=== PATIENT | male | born 1940 | race Caucasian/White ===

== ENCOUNTER 2023-01-03 16:23 | Emergency (ER) | payer MEDICARE, BC, SELFPAY ==
[2023-01-03 16:30] VITALS: BP 135/76; PULSE 83; RESP 20; TEMP 36.8; O2SAT 97
--- NOTE | 2023-01-03 16:56 | ED_ITS ---
HPI - General Adult General Time Seen by Provider: 17:51 Date Seen: 01/03/23 Chief complaint: Altered Mental Status Stated complaint: Disoriented, sleep issues, cognitive issues Time Seen by Provider: 01/03/23 16:55 Source: patient, RN notes reviewed and other (Girlfriend is present) Mode of arrival: ambulatory Limitations: no limitations History of Present Illness HPI narrative: This 82-year-old gentleman is coming in accompanied by his significant other with multitude of symptoms. They relate a history where about 3 weeks ago he just awoke around 1 in the night and could not get back to sleep. He has been having insomnia since then. Over months his balance is probably been worse but has gotten worse more so than starting Zoloft 6 days ago. 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 His sleep has not changed on the Zoloft, still not sleeping. When he wakes up at night he is confused. His girlfriend describes such things as he will ask her what he supposed to do next, does not understand what is going to happen with the numbers on the clock. She will tell him things like you should go back to bed in he will ask her how he does that. She states that somnolence like he does not know how to even get into bed or put the covers on over what supposed to come next. The 1st night he woke in the middle the night he was not sure how to put the dog outside or do anything. He really just could not figure things out and still can not in the middle the night. During the day he seems fine but still will have difficulty in can not nap. He denies any hallucinations at any time. He does not drink any alcohol there has been no trauma. Maybe sleeping a couple hours at night. Heel walk about 20 minutes a day and that is about his limit. About 10 years ago he had a heart attack and looks as if he had a thrombectomy and drug-eluting stent to RCA and drug-eluting stent to OM1. He thinks he maybe had a nuclear stress test a couple years ago, they are not sure if he had on last year. She admits she is concerned with the sweating the exercise intolerance that he might be having cardiac symptoms. He states he is having no pain now. Back in 2012 he did have some stomach discomfort with symptoms. Since starting the Zoloft he has noted some nausea, no vomiting he has had some looser type stools. He did get started on vitamin-D recently for vitamin-D deficiency. They have a prescription to start mirtazapine 7.5 mg tomorrow and were told to stop the Zoloft. He has not seen Neurology, has not had any neuro imaging. With his gait, he notes it is worse when he 1st gets up and then when he stops, that is when he feels most unsteady. Related Data Allergies Allergy/AdvReac Type Severity Reaction Status Date / Time Penicillins Allergy Mild Verified 01/03/23 16:33 Review of Systems Status of ROS: Reports: 6 or more systems reviewed and unremarkable except as noted in History and below PFSH [facility] Social History Smoking Status: Never smoker Do you use any of these nicotine containing products: None Second hand tobacco smoke exposure: No How often do you have a drink containing alcohol: never AUDIT-C Alcohol total score: 0 Non-prescribed substance use: denies use Exam Const: Vital Signs, click to edit/add: Vital Signs - 24 hr 01/03/23 16:30 Temperature 98.2 F Pulse Rate [Right Pulse Oximeter] 83 Respiratory Rate 20 Blood Pressure [Ri ght Upper Arm] 135/76 Pulse Oximetry 97 Oxygen Delivery Me thod Room Air Documenting provider has reviewed patient's vital signs: yes Common normals: no apparent distress, average body habitus, oriented x3, no limitations, healthy appearing and alert General appearance: cooperative, comfortable, well kempt and well developed HENMT: Common normals: normocephalic, head/scalp atraumatic, hearing grossly normal bilaterally, external ears normal, external nose normal, moist oral mucous membranes, oropharynx normal and dentition normal Head and scalp: normocephalic and atraumatic Nose: external nose normal External ear: external ears normal Eye: Common normals: PERRL, EOMs intact bilaterally, conjunctivae normal and no scleral icterus Conjunctiva: conjunctiva(e) normal Pupil: PERRL Neck & C-Spine: Common normals: full ROM, no lymphadenopathy and supple Resp: Common normals: normal respiratory effort, no retractions, no use of accessory muscles and clear to auscultation bilaterally Effort & inspection: able to speak in complete sentences Auscultation: clear to auscultation bilaterally Cardio: Common normals: regular rate, regular rhythm, S1 normal heart sound, S2 normal heart sound, no gallops, no clicks and no murmurs Rate: regular rate Rhythm: regular rhythm Heart sounds: S1 normal and S2 normal GI: Common normals: Normal to inspection, nondistended, normoactive bowel sounds present, soft to palpation, non-tender, no hepatosplenomegaly and no masses Palpation: soft and no hepatosplenomegaly Extremity: Common normals: no calf tenderness and no pedal edema Neuro: Common normals: oriented x3, CN's II-XII intact bilaterally, moves all extremities and no sensory deficits noted Sensorium/orientation: alert Speech: speech normal Motor exam: strength 5/5 throughout Other: Is a little unsteady when he 1st stands up in sways a bit, recovers after a couple seconds and is able to ambulate, gait is on slightly wide-based. Do note some resting tremor of his right arm. I do feel some very mild cogwheeling of his right arm, do not find on the left. Psych: Appearance: well kempt Course Course Hospital Course: In we of reviewed the symptoms. It sounds like insomnia is problematic, have reviewed that I will not likely have a quick fix. I will talk to our hospitalist. I do think he could try did initiate Remeron tonight. We discussed other medicines that are particularly used directly for sleep have adverse effects and reactions in patient's over 65 in really are not recommended. Seroquel I have used in some patients in the hospital setting but not quite sure that this patient is ready for using Seroquel for sleep. Believe that would be best coming from primary care provider who knows him. His girlfriend admits she is concerned that it could be cardiac. Reviewed we can do an EKG and a troponin. Other than that, they really will need a stress test to ascertain ischemic dysfunction of the heart. I cannot rule that out here tonight. He certainly does not have symptoms of an acute IL but will make sure the troponin is not elevated. I really do feel that he needs to see Neurology based on his neurologic exam that I am finding tonight. He has some parkinsonian features, think possibly an MRI might benefit him but he does not need that emergently. Ultimately, I think he really needs to see Neurology for some of these issues. In his lab workup they have done a basic metabolic panel, CBC, liver panel, urinalysis, B12, TSH, vitamin-D level. His vitamin-D was found to be low and they have him on supplementation. We did discuss that his nausea and diarrhea and increased sweating certainly can be from the Zoloft. Do agree with having him stop this and switching to different medication. As far as neuro imaging, do not see benefit of a head CT at this time. Think he needs to see Neurology and consideration for MRI based on their decision making. Vital Signs Vital signs: Initial Vital Signs Temperature 98.2 F 01/03/23 16:30 Temperature Source Oral 01/03/23 16:30 Pulse Rate 83 01/03/23 16:30 Pulse Rhythm Regular 01/03/23 16:30 Pulse Strength 3+ Normal 01/03/23 16:30 Respiratory Rate 20 01/03/23 16:30 Blood Pressure 135/76 01/03/23 16:30 Blood Pressure Mean 95 01/03/23 16:30 Blood Pressure Position Sitting 01/03/23 16:30 Pulse Oximetry 97 01/03/23 16:30 Oxygen Delivery Method Room Air 01/03/23 16:30 Vital Signs Temperature 98.2 F 01/03/23 16:30 Pulse Rate 83 01/03/23 16:30 Respiratory Rate 20 01/03/23 16:30 Blood Pressure 135/76 01/03/23 16:30 Pulse Oximetry 97 01/03/23 16:30 Oxygen Delivery Method Room Air 01/03/23 16:30 Temperature 98.2 F 01/03/23 16:30 Pulse Rate 83 01/03/23 16:30 Respiratory Rate 20 01/03/23 16:30 Blood Pressure 135/76 01/03/23 16:30 Pulse Oximetry 97 01/03/23 16:30 Oxygen Delivery Method Room Air 01/03/23 16:30 Medical Decision Making Lab Data Lab results reviewed: Yes I reviewed the patient's lab results Labs: Lab Results 01/03/23 Range/Units 18:30 POC Troponin I 0.01 (0.01-0.04) ng/ml ECG Data Attestation: I personally reviewed and interpreted this ECG as follows: (Normal sinus rhythm, 67 beats per minute, left bundle branch block.) Prior ECG tracings: available for review (Old records show left bundle branch block on prior EKGs.) Discharge Plan Discharge Clinical Impression: Insomnia, Medication side effects, Gait instability, Tremor Patient Disposition: Home, Self-Care Condition: Stable Instructions: Insomnia (ED), Tremors (ED) Additional Instructions: Certainly nausea and diarrhea are very likely from the initiation of the Zoloft. Agree with your primary care provider with stopping the Zoloft and switching to Remeron instead. I do think that you need to see Neurology and they can advise on neuro imaging if indicated. It is possible that your balance and tremor may improve off the Zoloft, that these symptoms may have worsened as an atypical side effect of this medicine. You need to continue to work with your primary care provider regarding insomnia. I also recommend talking to your primary care provider to see about having a nuclear medicine cardiac stress test done. Activity Level: Activity as Tolerated Follow Up/Referrals: Dax Caballero MD [Primary Care Provider] - Stand Alone Forms: [employer] Info Instructions
[2023-01-03 19:10] LABS: Troponin, Point-of-Care* 0.01 ng/ml (0.01-0.04)
[2023-01-03] MEDS: MIRTAZAPINE 15 MG TABLET 7.5 MG PO (20:20)
== END 2023-01-03 20:30 | disposition home or self-care (01) ==
PROVIDERS: Emergency Provider Family Medicine; PCP Family Medicine
DX: G47.00 Insomnia, unspecified (principal); R26.89 Other abnormalities of gait and mobility; R25.1 Tremor, unspecified; T43.225A Adverse effect of selective serotonin reuptake inhibitors, initial encounter
CPT/HCPCS: 84484; 93005; 99283; 99284; A9270